=== PATIENT | female | born 1985 | race Caucasian/White ===

== ENCOUNTER → 2020-03-14 15:51 | Outpatient (CLI) | payer OTHER, SELFPAY ==
[2020-03-14 14:26] VITALS: BMI 17.4
[2020-03-14 16:47] LABS: Absolute Lymphocyte Count 2.01 X10^3/uL (0.83-4.51); Absolute Neutrophil Count 5.3 X10^3/uL (2.0-7.7); Basophil# 0.03 X10^3/uL; Basophil% 0.4 % (0-1); Eosinophil# 0.03 X10^3/uL; Eosinophils% 0.4 % (0-5); Hemoglobin 13.5 g/dL (12.0-15.0); Lymphocyte # 2.01 X10^3/ul (4.0); Lymphocyte % 25.3 % (19-41); Mean Corp Hgb Conc 32.1 g/dL (32-36); Mean Corpuscular Hgb 29.9 pg (27.0-32.0); Mean Corpuscular Volume 92.9 fL (81-99); Mean Platelet Vol. 9.8 fl (6.2-12.0); Monocyte# 0.54 X10^3/uL; Monocyte% 6.8 % (0-10); NRBC Flagged by Analyzer 0 % (0-5); Neutrophil # 5.32 X10^3/uL (2.7-7.7); Neutrophil % 66.8 % (47-70); Platelet Count 321 K/mm3 (150-450); RBC Distribution Width CV 12.4 % (11.6-14.6); RBC Distribution Width SD 42.7 fl (35.1-43.9); Red Blood Count 4.52 M/mm3 (4.2-5.4)
[2020-03-14 17:22] LABS: Anion Gap 3 (5-15); BUN 11 mg/dL (7-18); BUN/Creat Ratio 18.1 RATIO (10-20); Calcium,Total 9.7 mg/dL (8.5-10.1); Chloride 106 mmol/L (98-107); Creatinine, Serum 0.61 mg/dL (0.55-1.02); EST Glomerular Filtration Rate 121 mL/min (>60); Est Glom Filt Rate - Afr Amer 146 mL/min (>60); Glucose 96 mg/dL (74-106); Magnesium 2.2 mg/dL (1.6-2.6); Potassium 3.8 mmol/L (3.5-5.1); Sodium Level 138 mmol/L (136-145); T4 Total, Thyroxin 9.3 ug/dL (4.8-13.9)
== END ==
PROVIDERS: PCP Family Medicine; Visit Provider Internal Medicine Cardiovascular Disease
DX: R42 Dizziness and giddiness (principal); R00.2 Palpitations; I49.9 Cardiac arrhythmia, unspecified
CPT/HCPCS: 36415; 80048; 83735; 84436; 84443; 85025

== ENCOUNTER → 2020-04-04 09:41 | Outpatient (CLI) | payer OTHER, SELFPAY ==
[2020-03-14 14:26] VITALS: BMI 17.4
== END ==
PROVIDERS: PCP Family Medicine; Referring Provider Internal Medicine Cardiovascular Disease; Visit Provider Internal Medicine Cardiovascular Disease
DX: R42 Dizziness and giddiness (principal); R00.2 Palpitations; I49.9 Cardiac arrhythmia, unspecified
CPT/HCPCS: 93225; 93226

== ENCOUNTER → 2020-04-07 09:44 | Outpatient (CLI) | payer SELFPAY, OTHER ==
[2020-03-14 14:26] VITALS: BMI 17.4
--- NOTE | 2020-04-07 09:46 | ECHOD_ITS ---
Reason For Study: palpitations Procedure This was a 2D Doppler, Color Flow transthoracic echocardiogram. The exam was of adequate technical quality. Exam performed in department. Left Ventricle Normal LV size. Left ventricular systolic function is lower limits of normal. The estimated ejection fraction is 50 %. No evidence for diastolic dysfunction. Right Ventricle Normal RV size. Normal systolic function. Atria Normal left atrium. Normal right atrium. No doppler evidence for ASD. Mitral Valve There is no mitral annular calcification. Normal mitral valve. Trivial mitral valve insufficiency. Tricuspid Valve Normal tricuspid valve. Trivial tricuspid valve insufficiency. Right ventricular systolic pressure estimated to be 14 mmHg. Aortic Valve Trisinus/trileaflet aortic valve. Normal aortic valve. Trivial aortic valve insufficiency. Pulmonic Valve The pulmonic valve is not well visualized. Great Vessels Normal sized aortic root. Pericardium/Pleural No pericardial effusion. MMode/2D Measurements & Calculations LVIDd: 5.0 cm IVSd: 0.51 cm Ao root diam: 3.0 cm LVIDs: 3.8 cm LVPWd: 0.61 cm RVDd: 3.0 cm FS: 24.4 % LAV(MOD-bp): 29.8 ml LA A4 area: 13.4 cm2 LA dimension(2D): 2.2 cm LAV(MOD-bp) Indexed: 19.3 ml/m2 LAV(MOD-sp2): 20.7 ml LAV(MOD-sp4): 36.0 ml RA A4 area: 11.0 cm2 Doppler Measurements & Calculations MV E max boy: 55.4 cm/sec Lat Peak E' Boy: 16.3 cm/sec Med Peak E' Boy: 12.6 cm/sec MV A max boy: 46.0 cm/sec E/E' lat: 3.4 E/E' med: 4.4 MV E/A: 1.2 Ao V2 max: 99.8 cm/sec LV V1 max: 86.4 cm/sec PA V2 max: 69.5 cm/sec Ao max P.0 mmHg LV V1 max P.0 mmHg TR max boy: 164.4 cm/sec TR max P.8 mmHg Interpretation Summary Left ventricular systolic function is lower limits of normal. The estimated ejection fraction is 50 %. Trivial mitral valve insufficiency. Trivial tricuspid valve insufficiency. Trivial aortic valve insufficiency. Right ventricular systolic pressure estimated to be 14 mmHg. No evidence for diastolic dysfunction. Ordering Physician: Addison Virgen Referring Physician: Doroteo Rodriguez Performed By: Lay Kessler, RHODACS, RVT
== END ==
PROVIDERS: PCP Family Medicine; Referring Provider Internal Medicine Cardiovascular Disease; Visit Provider Internal Medicine Cardiovascular Disease
DX: R42 Dizziness and giddiness (principal); R00.2 Palpitations; I49.9 Cardiac arrhythmia, unspecified
CPT/HCPCS: 93306

== ENCOUNTER 2023-10-04 04:08 | Inpatient (IN) | payer OTHER, SELFPAY ==
[2023-10-04] VITALS (18 sets, daily range): BP systolic 99–123; BP diastolic 43–79; PULSE 74–97; RESP 14–18; TEMP 35.8–36.8; O2SAT 16–100; BMI 16.3
--- NOTE | 2023-10-04 04:19 | RAD_ITS ---
INDICATION: pain EXAMINATION/TECHNIQUE: X-RAY - XR Pelvis 1 or 2 Views COMPARISON: None. FINDINGS: Single frontal view the pelvis. Comminuted, mildly displaced, oblique intertrochanteric proximal femur fracture, only partially imaged. No other definite acute osseous abnormality. RAD/Pelvis 1 or 2 Views IMPRESSION: Left proximal femur fracture, only partially imaged. Electronically Signed: Hoang Bradshaw MD at 5:56 EDT ,
--- NOTE | 2023-10-04 04:19 | RAD_ITS ---
INDICATION: pain EXAMINATION/TECHNIQUE: X-RAY - LEFT XR Femur Min 2 Views COMPARISON: None. FINDINGS: 4 views of the left femur. Comminuted, mildly displaced, oblique intertrochanteric proximal femur fracture. No other definite acute osseous abnormality. RAD/Femur Min 2 Views IMPRESSION: Left proximal femur fracture. Electronically Signed: Hoang Bradshaw MD at 5:55 EDT ,
--- NOTE | 2023-10-04 04:20 | ED.VIS.LOWEX ---
HPI History of Present Illness Chief Complaint: Trauma Narrative Narrative: 37-year-old female presenting with left hip and femur pain. She states that 3 days ago she was in [place]. The patient was with her . Apparently she was washing close by the water and on the amount. There was a person living out there by the [place] who had a dog on a long leash and left out of the yard. Apparently the patient came to close and the dog ran at her. The patient states he is a big dog but does not know what kind it was. It jumped on her and bit her abdomen and posterior down on the left side. Patient was unable to ambulate after this. She and her decided not to seek care anywhere along the route home from [place] and she has been traveling for the last few days. She is not able to ambulate. [facility] Medical History (Updated 10/04/23 @ 06:[address] Suellen Moran MD) Palpitations Medical History no medical history Home Medications ?Medication ?Instructions ?Recorded ?Last Taken ?Type NK 10/04/23 Unknown History Allergy/AdvReac Type Severity Reaction Status Date / Time No Known Allergies Allergy Verified 10/04/23 04:13 Family History Other Heart disease Social History Smoking Status: Never smoker alcohol intake: never substance use type: does not use caffeine: Yes Type: carbonated beverages and coffee Number of servings: 1 ROS ROS ED Constitutional Constitutional ED: Denies chills, fever(s) or sweats Eyes Eyes: Denies blurry vision or change in vision ENT ENT ED: Denies ear pain or sore throat Cardiovascular Cardiovascular: Denies chest pain, palpitations or racing heartbeat Respiratory/Chest Respiratory/Chest: Denies cough, dyspnea or sputum Gastrointestinal Gastrointestinal: Denies abdominal pain, constipation, diarrhea, nausea or vomiting Genitourinary Genitourinary ED: Denies dysuria, hematuria or urinary frequency Musculoskeletal Musculoskeletal: Reports other Details: Left hip and femur pain ; Denies arthralgias, myalgias or neck pain Integumentary Denies abscess, Abrasions or rash Neurologic Neurologic: Denies headache(s), paresthesias or weakness Psychiatric Psychiatric: Denies anxiety, depression, suicidal ideation or suicidal thoughts Endocrine Endocrinology: Denies polydipsia or polyuria EXAM Physical Exam Const Vital Signs: 10/04/23 04:09 10/04/23 04:37 Temperature 96.5 F L Temperature Source Temporal Pulse Rate 87 Respiratory Rate 18 Respiratory Effort Normal Non-Labored Respiratory Depth Normal Respiratory Pattern Normal Blood Pressure 114/43 L Blood Pressure Mean 66 Pulse Ox 98 Oxygen Delivery Method Room Air Positive well nourished General Appearance ED: NAD HEENT Reports moist mucous membranes normocephalic and atraumatic Chest Wall inspection of chest normal Resp normal respiratory effort and no retractions Cardio regular rate and regular rhythm GI GI Narrative: There is a large bite wound on the abdomen with minimal penetration. There is erythema mild erythema. Extremity Extremity Narrative: Tenderness to palpation over the left greater trochanter and more distally into the femur region. There is no obvious deformity. There is no bruising. Neuro oriented x3 and CN's II-XII intact bilaterally Sensorium / Orientation: alert Motor Exam: strength 5/5 throughout Psych mental status grossly normal MDM MDM MDM Narrative Medical decision making narrative: Patient presenting with dog bite and left-sided leg pain. Differential includes hip contusion, hip fracture, femur fracture, acetabular fracture. IV line was established. Patient given morphine and Zofran. Will obtain images of the left hip and left femur. Patient's tells me that the fall internship of the dog had all to mutations up-to-date. CBC will be obtained to assess white blood cell count, hemoglobin and platelets. BMP to assess renal function, electrolytes, glucose. CBC shows normal and within 6.9. Hemoglobin 11.9. Platelets are normal. Renal function and electrolytes within normal limits. X-rays of the left hip and femur interpreted by myself show a oblique intertrochanteric femur fracture with mild displacement. Discussed the case with Dr. Lei who is on-call for orthopedics and will keep the patient and take him to the OR. Patient has remained NPO since 9 PM last night. I did obtain a chest x-ray 1 view on my interpretation shows no acute cardiopulmonary process. Radiologist interprets this and agrees. I gave the patient a dose of Zosyn to keep her n.p.o. to cover for her dog bite. Impression: 1. Dog bite 2. Left femur fracture Lab Data Attestation: I reviewed the patient's lab results. Labs: Laboratory Results - last 24 hr 10/04/23 04:35 WBC 6.9 RBC 3.99 L Hgb 11.9 L Hct 37.1 MCV 93.0 MCH 29.8 MCHC 32.1 RDW Std Deviation 43.9 RDW Coeff of Madonna 12.9 Plt Count 227 MPV 9.7 Immature Gran % (Auto) 0.300 Neut % (Auto) 63.5 Lymph % (Auto) 26.7 [place] % (Auto) 8.4 Eos % (Auto) 0.7 Baso % (Auto) 0.4 Absolute Neuts (auto) 4.4 Absolute Lymphs (auto) 1.84 Nucleated RBC % 0 Sodium 140 Potassium 3.5 Chloride 106 Carbon Dioxide 28.0 Anion Gap 6 BUN 10 Creatinine 0.78 Estim Creat Clear Calc 100.92 Est GFR (MDRD) Af Amer 108 Est GFR (MDRD) Non-Af 89 BUN/Creatinine Ratio 12.9 Glucose 116 H Calcium 9.1 Radiography Diagnostic Testing: Clinical Impression(s) from Imaging Studies Femur X-Ray 10/04/23 04:19 IMPRESSION: Left proximal femur fracture. Electronically Signed: Hoang Bradshaw MD at 5:55 EDT , Pelvis X-Ray 10/04/23 04:19 IMPRESSION: Left proximal femur fracture, only partially imaged. Electronically Signed: Hoang Bradshaw MD at 5:56 EDT , Chest X-Ray 10/04/23 05:00 IMPRESSION: Chest with no acute disease. Electronically Signed: Hoang Bradshaw MD at 5:52 EDT , Discharge Plan Triage Chief Complaint: Trauma Other Complaint: Fall ED Provider: Tico Hutton Dx/Rx/DC Orders Primary Care Provider: Doroteo Rodriguez
[2023-10-04 04:40] LABS: Absolute Lymphocyte Count 1.84 X10^3/uL (0.83-4.51); Absolute Neutrophil Count 4.4 X10^3/uL (2.0-7.7); Basophil# 0.03 X10^3/uL; Basophil% 0.4 % (0-1); Eosinophil# 0.05 X10^3/uL; Eosinophils% 0.7 % (0-5); Hematocrit 37.1 % (37-47); Hemoglobin 11.9 g/dL (12.0-15.0); Lymphocyte # 1.84 X10^3/ul (0.83-4.51); Lymphocyte % 26.7 % (19-41); Mean Corp Hgb Conc 32.1 g/dL (32-36); Mean Corpuscular Hgb 29.8 pg (27.0-32.0); Mean Platelet Vol. 9.7 fl (6.2-12.0); Monocyte# 0.58 X10^3/uL; Monocyte% 8.4 % (0-10); NRBC Flagged by Analyzer 0 % (0-5); Neutrophil # 4.37 X10^3/uL (2.7-7.7); Neutrophil % 63.5 % (47-70); Platelet Count 227 K/mm3 (150-450); RBC Distribution Width CV 12.9 % (11.6-14.6); RBC Distribution Width SD 43.9 fl (35.1-43.9); Red Blood Count 3.99 M/mm3 (4.2-5.4); White Blood Count 6.9 K/mm3 (4.4-11.0)
[2023-10-04] MEDS: Ondansetron 4 MG/2 ML Vial IV (04:43)
[2023-10-04] MEDS: Morphine 4 MG/ML Syringe IV ×3 (04:44→10:44)
[2023-10-04] MEDS: Diphth,Pertuss(Acell),Tet Vac 0.5 ML Vial IM (04:46)
[2023-10-04 04:54] LABS: Anion Gap 6 (5-15); BUN 10 mg/dL (7-18); BUN/Creat Ratio 12.9 RATIO (10-20); Calcium,Total 9.1 mg/dL (8.5-10.1); Chloride 106 mmol/L (98-107); Creatinine, Serum 0.78 mg/dL (0.55-1.02); EST Glomerular Filtration Rate 89 mL/min (>60); Est Glom Filt Rate - Afr Amer 108 mL/min (>60); Estimated Creatinine Clearance 100.92 ml/min; Glucose 116 mg/dL (74-106); Potassium 3.5 mmol/L (3.5-5.1); Sodium Level 140 mmol/L (136-145)
--- NOTE | 2023-10-04 05:00 | RAD_ITS ---
INDICATION: medical clearance EXAMINATION/TECHNIQUE: X-RAY - XR Chest 1 View COMPARISON: None. Findings: Single frontal view of the chest. LUNG PARENCHYMA: No acute focal airspace disease or mass lesion. PLEURA: No pleural effusion. No pneumothorax. HEART/GREAT VESSELS: Cardiomediastinal silhouette is unremarkable. BONES: Osseous structures are unremarkable for age. RAD/Chest 1 View (Portable) IMPRESSION: Chest with no acute disease. Electronically Signed: Hoang Bradshaw MD at 5:52 EDT ,
[2023-10-04] MEDS: 0.9% Normal Saline (1000mL) 1,000 ML 100 ML IV ×2 (07:33→17:56)
--- NOTE | 2023-10-04 08:48 | CON.PCM.OR_ITS ---
HPI Consult Data Date of Consult: 10/04/23 HPI Narrative HPI Narrative: JARETT ALVARADO, is a 37 F who presents with a left hip fracture intertrochanteric. The patient was pushed over by dog 2 days ago fell over was unable to weight- bear. Brought here by her Josafat this morning at about 3 AM. No prior hip pain or problems no head injury or loss of consciousness. [facility] Medical History (Updated 10/04/23 @ 08:50 by Michael Lei MD) Closed left hip fracture Palpitations Medical History no medical history Home Medications ?Medication ?Instructions ?Recorded ?Last Taken ?Type NK 10/04/23 Unknown History Allergy/AdvReac Type Severity Reaction Status Date / Time No Known Allergies Allergy Verified 10/04/23 04:13 Family History Other Heart disease Social History Smoking Status: Never smoker alcohol intake: never substance use type: does not use caffeine: Yes Type: carbonated beverages and coffee Number of servings: 1 Vital Signs Vital Signs Vital Signs: 10/04/23 04:09 10/04/23 04:37 10/04/23 06:09 Temperature 96.5 F L Temperature Source Temporal Pulse Rate 87 92 Respiratory Rate 18 14 Respiratory Effort Normal Non-Labored Respiratory Depth Normal Respiratory Pattern Normal Blood Pressure 114/43 L 123/74 H Blood Pressure Mean 66 90 Blood Pressure Source Blood Pressure Position Blood Pressure Location Pulse Ox 98 100 Oxygen Delivery Method Room Air Room Air 10/04/23 06:09 10/04/23 07:21 Temperature 97.1 F L 98.3 F Temperature Source Oral Pulse Rate 92 79 Respiratory Rate 16 16 Respiratory Effort Respiratory Depth Respiratory Pattern Blood Pressure 123/74 H 114/68 Blood Pressure Mean 90 83 Blood Pressure Source Monitor Blood Pressure Position Semi-Fowlers Blood Pressure Location Right Arm Pulse Ox 100 100 Oxygen Delivery Method Room Air Weight Weight: 113 lb 12.136 oz Body Mass Index (BMI) 16.3 Physical Exam Const alert, oriented x3, no apparent distress and well nourished General Appearance: cooperative and well developed Extremity normal capillary refill, no calf tenderness and no pedal edema Extremity Narrative: Closed injury to the left hip pain to the left hip no pain at the knee or lower than this. Normal sensation motor function to the foot including the superficial and deep peroneal nerves as well as saphenous sural and tibial. The patient is able to wiggle the toes dorsiflex and plantarflex the foot foot is warm and well-perfused with good pulses. Lab / Micro Data 10/04/23 04:35 10/04/23 04:35 Labs: Laboratory Results - last 24 hr 10/04/23 04:35: WBC 6.9, RBC 3.99 L, Hgb 11.9 L, Hct 37.1, MCV 93.0, MCH 29.8, MCHC 32.1, RDW Std Deviation 43.9, RDW Coeff of Madonna 12.9, Plt Count 227, MPV 9.7, Immature Gran % (Auto) 0.300, Neut % (Auto) 63.5, Lymph % (Auto) 26.7, [place] % (Auto) 8.4, Eos % (Auto) 0.7, Baso % (Auto) 0.4, Absolute Neuts (auto) 4.4, Absolute Lymphs (auto) 1.84, Nucleated RBC % 0, Sodium 140, Potassium 3.5, Chloride 106, Carbon Dioxide 28.0, Anion Gap 6, BUN 10, Creatinine 0.78, Estim Creat Clear Calc 100.92, Est GFR (MDRD) Af Amer 108, Est GFR (MDRD) Non-Af 89, BUN/Creatinine Ratio 12.9, Glucose 116 H, Calcium 9.1 Imaging Radiology Impression Femur X-Ray 10/04/23 04:19 IMPRESSION: Left proximal femur fracture. Electronically Signed: Hoang Bradshaw MD at 5:55 EDT , Pelvis X-Ray 10/04/23 04:19 IMPRESSION: Left proximal femur fracture, only partially imaged. Electronically Signed: Hoang Bradshaw MD at 5:56 EDT , Chest X-Ray 10/04/23 05:00 IMPRESSION: Chest with no acute disease. Electronically Signed: Hoang Bradshaw MD at 5:52 EDT , I independently reviewed the imaging. Concur with radiologist report. 2 part intertrochanteric proximal femur fracture with slight subtrochanteric extension Assessment & Plan Assessment/Plan (1) Closed left hip fracture: PLAN: 37-year-old female with a left hip intertrochanteric hip fracture with slight subtrochanteric extension. I explained to the patient and her the diagnosis prognosis different treatment options including doing nothing bedrest palliative care versus open reduction internal fixation typically with a cephalomedullary nail. Risks of not surgery versus surgery were discussed typically surgery is indicated in most hip fractures as this avoids the risks of prolonged bedrest like VTE pneumonia and other complications. That being said surgery has risks as well which I discussed with the patient. High healing rate for IT hip fracture, but hip fracture in young patient does have risks of pain stiffness limp malrotation and others. The patient will be n.p.o. in preparation for surgery MRI of the left hip discussed the case with anesthesia hopefully to be added on this afternoon. For now I bedrest and holding any anticoagulation. The patient and understood and signed the consent form for surgery left hip open reduction internal fixation as well as possible need for blood products. They understood no further questions or concerns. Pros and cons risks and benefits were discussed with the patient including but not limited to infection, pain, stiffness, bleeding, damage to surrounding structures, neurovascular injury, recurrence or retear, failure or wear of hardware or fixation, instability, fracture, deep vein thrombosis and pulmonary embolism, anesthetic risks, , patient dissatisfaction, need for further surgery and other risks. Patient understood and wished to proceed with surgery, and signed the informed consent documentation.
--- NOTE | 2023-10-04 08:48 | WOUNDNOTE ---
Was asked to see patient for canine bites. patient was fishing in [place] with her and children and was attacked by a dog from the area. patient was admitted for a left hip fracture. there are some scratch gonzalez to the left lower abdomen and one small puncture. no drainage noted. no surrounding erythema noted. will plan to leave open to air. can cover with a dry dressing prn drainage. will monitor. pt is scheduled for surgery later today for left hip repair. at bedside.
[2023-10-04] MEDS: Piperacil/Tazobactam 3.375 GM in 0.9% Normal Saline (50mL MB+) 50 ML IV (09:54)
--- NOTE | 2023-10-04 10:27 | CASEMGMT ---
SELVIN JONES Assessment Face to Face with patient for initial transition planning/care coordination assessment. SELVIN JONES introduced self and role at [facility], pt voices understanding. Pt is A&Ox4 and is resting comfortably in bed and is calm. Pt at bedside. Care providers, pharmacy, and demographics verified. Admitting dx: Lt Hip Fx LACE Strata: 1 PCP: Doroteo Rodriguez Specialists: Denies Preferred Pharmacy: [facility] During this stay Insurance: [employer] Prescription Benefit: Yes LNOK: oJsafat Puente (H) Living Arrangements: Pt lives at home with her and 6 children in a two story home with two steps to enter ADLs/IADLs: Ind at baseline Transportation: Pt states that they hire drivers. Pt states that they might hire a explosives truck driver to help transport the pt home. [facility] Staff to follow needs. DME: [facility] at home. Denies further DME uses at this time. HHC/SNF: Denies history or needs Pt?s goal: Home Plan: TBD. Pt is scheduled for surgery today. PT to evaluate subsequently. Pt and pt state that it is too early to tell what the pt will best qualify for moving forward. CM to follow. Nidia Grant RN, CM
[2023-10-04 10:49] LABS: Internal QC Validated? YES +Cl - CLEAR BKGD; Pregnancy, Urine Negative Negative
--- NOTE | 2023-10-04 12:47 | PCM.PRE.AN2 ---
ASA Classification* ASA Classification ASA Classification: 2 and E Assessment & Plan Anesthesia* Anesthesia Assessment Anesthesia Assessment: Discussed sedation and/or anesthesia options, risks, benefits, and alternatives with patient/parents/legal guardian/POA. Questions invited. The patient/parents/legal guardian/POA seems to understand and agrees to proceed with anesthesia plan. Reviewed the physical assessment, medical history, allergy history and patient home medications list prior to surgery/procedure/anesthetic and documented any changes. Performed airway and anesthesia risk assessments. Anesthesia Type Anesthesia Type: General Anesthesia Focused Assessment* Temperature: 98.3 F Pulse Rate: 79 Blood Pressure: 114/68 Respiratory Rate: 16 Pulse Ox: 100 Airway Assessment Mouth opens: >3 cm Mallampati Score: II Focused Labs Anesthesia Preop lab: CBC WBC 6.9 K/mm3 (4.4-11.0) 10/04/23 04:35 RBC 3.99 M/mm3 (4.2-5.4) L 10/04/23 04:35 Hgb 11.9 g/dL (12.0-15.0) L 10/04/23 04:35 Hct 37.1 % (37-47) 10/04/23 04:35 Plt Count 227 K/mm3 (150-450) 10/04/23 04:35 CHEMISTRY Potassium 3.5 mmol/L (3.5-5.1) 10/04/23 04:35 Sodium 140 mmol/L (136-145) 10/04/23 04:35 Magnesium 2.2 mg/dL (1.6-2.6) 03/14/20 15:55 BUN 10 mg/dL (7-18) 10/04/23 04:35 Creatinine 0.78 mg/dL (0.55-1.02) 10/04/23 04:35 Glucose 116 mg/dL (74-106) H 10/04/23 04:35 TSH 1.10 uIU/mL (0.358-3.74) 03/14/20 15:55 COAG Urine Test Negative Negative 10/04/23 10:00 Pre-Assessment Diagnosis/Proposed Procedure Planned Operative Procedure(s): hip orif Anesthesia History Anesthesia History - front end java developer: Anesthesia History - front end java developer Hx Hospitalization Any Problems With Anesthesia Cholinesterase deficiency You/Your Family Experience fever (hyperthermia) with Relationship Recent Exposure to Contagious Disease Does patient have nerve stimulator Patient instructed to have device shut off --Does patient have Pacemaker or ICD? When Was Last Pacemaker Check QUESTION #4 FULL TEXT: You/Your Family Experience fever (hyperthermia) with Anesthesia Last Oral Intake Last Oral intake: Last Oral Intake NPO since Meds taken in AM with sips of water? Meds patient instructed to take am of surgery PONV PONV - front end java developer: PONV - front end java developer Female HX of Motion Sickness HX of N/V After Surgery Non-Smoker Duration of Surgery greater than 60 minutes Number of Risk Factors PONV Score Height & Weight Height & Weight: Anesthesia: Height & Weight Height 5 ft 10 in 10/04/23 07:19 Weight: 51.6 kg 10/04/23 07:19 Body Mass Index (BMI) 16.3 10/04/23 07:19 Respiratory Assessment Respiratory Assessment - front end java developer: Respiratory Tract Infection Hx - front end java developer Hx Respiratory Tract Infection STOP Sleep Apnea STOP Sleep Apnea - front end java developer: STOP Sleep Apnea - front end java developer Hx Hypertension No 10/04/23 07:25 Hx Sleep Apnea No 10/04/23 07:25 CPAP BIPAP Do you snore loudly (louder No 10/04/23 07:25 than talking or can be heard Do you often feel tired/ No 10/04/23 07:25 fatigued/ sleepy during daytime? Has anyone observed you stop No 10/04/23 07:25 breathing during sleep? STOP Results Negative 10/04/23 07:25 QUESTION #5 FULL TEXT : Do you snore loudly (louder than talking or can be heard through closed doors)? Tobacco Use History Tobacco Use History - front end java developer: Tobacco Use History - front end java developer Tobacco Use Smoking Status Never smoker 10/04/23 07:25 Hx Tobacco Use No 10/04/23 07:25 Years Smoking Packs Smoked per Day Smoking Cessation Date was within the last 15 years Hx Smoking Cessation Date Hx Smoking Cessation Counseling Hematologic Medial History Hematologic Hx - front end java developer: Hematologic Medical Hx - senior payroll administrator Hx of Blood Transfusion No 10/04/23 07:25 Hx of Transfusion in last 3 No 10/04/23 07:25 Months Date of Last Transfusion (if within last 3 months) Ever experience any problems No 10/04/23 07:25 with transfusion(s)? Specify any problems Hx of Preganancy in last 3 No 10/04/23 07:25 Months Nurse Filling Out Transfusion AHINES 10/04/23 07:25 & Questions: Date: 10/04/23 10/04/23 07:25 Time: 07:27 10/04/23 07:25 Patient unable to answer at this time (ie. confused, unrespo /Reproduction History /Reproductive History - front end java developer: /Reproductive Hx- front end java developer Hx Now No 10/04/23 07:25 Gestational Age (in weeks): EDC: Hx Hx Para Hx Section SAB No 10/04/23 04:09 Active Medications Active Medications: Current Medications Generic Name Dose Route Start Last Admin Trade Name Freq PRN Reason Stop Dose Admin Acetaminophen 650 mg 10/04/23 07:13 Acetaminophen 325 Mg Tablet PO Q4H PRN PRN Fever, pain 1-01/01 Al Hydroxide/Mg Hydroxide 30 ml 10/04/23 07:13 Mag Hydrox/Al Hydrox/Simeth 30 Ml Udc PO Q6H PRN PRN Gastric Burning Albuterol Sulfate 2.5 mg 10/04/23 07:13 Albuterol 2.5 Mg/3 Ml Vial.Neb. INHALATION Q2H PRN PRN Dyspnea, wheezing Famotidine 20 mg 10/04/23 10:00 10/04/23 09:55 Famotidine 20 Mg Tablet PO Not Given BID HENRI Guaifenesin 20 ml 10/04/23 07:13 Guaifenesin 10 Ml Udc (200mg/10ml) PO Q4H PRN PRN COUGH Hydralazine HCl 10 mg 10/04/23 07:13 Hydralazine 20 Mg/Ml Vial IV Q4H PRN PRN SBP > 160 Protocol Sodium Chloride 1,000 mls @ 100 mls/hr 10/04/23 07:13 10/04/23 10:25 IV 10/04/23 22:12 100 mls/hr .Q10H HENRI Infusion Ampicillin Sodium/Sulbactam 112 mls @ 150 mls/hr 10/04/23 12:00 Sodium 3 gm/ Sodium Chloride IV Q6 HENRI Melatonin 3 mg 10/04/23 07:13 Melatonin 3 Mg Tablet PO QHS PRN PRN INSOMNIA Morphine Sulfate 2 - 4 mg 10/04/23 07:13 10/04/23 10:44 Morphine 4 Mg/Ml Syringe IV 4 mg Q2H PRN PRN Administration Pain Score 4-10 Ondansetron HCl 4 mg 10/04/23 07:13 Ondansetron 4 Mg/2 Ml Vial IV Q8H PRN PRN NAUSEA/VOMITING Oxycodone HCl 5 - 10 mg 10/04/23 07:13 Oxycodone 5 Mg Tablet PO Q4H PRN PRN Pain Score 4-10 Prochlorperazine Edisylate 5 mg 10/04/23 07:13 Prochlorperazine 10 Mg/2 Ml Vial IV Q4H PRN PRN Breakthrough nausea/vomiting Senna/Docusate Sodium 2 tablet 10/04/23 10:00 10/04/23 09:56 Senna/Docusate Sodium 1 Tablet PO Not Given BID HENRI Sodium Chloride 10 - 40 ml 10/04/23 07:23 0.9% Saline Lock 10 Ml Syringe IV UD PRN SALINE FLUSH PFSH Medical History Closed left hip fracture Palpitations Medical History no medical history Home Medications ?Medication ?Instructions ?Recorded ?Last Taken ?Type NK 10/04/23 Unknown History Allergy/AdvReac Type Severity Reaction Status Date / Time No Known Allergies Allergy Verified 10/04/23 04:13 Family History Other Heart disease Social History Smoking Status: Never smoker alcohol intake: never substance use type: does not use caffeine: Yes Type: carbonated beverages and coffee Number of servings: 1 Review of Systems (Anesthesia) ROS Narrative System reviewed and no additional complaints, except as documented.
--- NOTE | 2023-10-04 13:25 | RAD_ITS ---
STUDY: X-RAY - PELVIS AND LEFT HIP REASON FOR EXAM: Female, 37 years old. FX TECHNIQUE: 2 views of the pelvis and hip. COMPARISON: Earlier today FINDINGS: 64 seconds of fluoroscopy of the left hip was utilized for upper arm during open reduction internal fixation of fracture of the intratrochanteric femur the femoral neck compression screw and long intramedullary miki and 5 images are significant for interpretation. . RAD/Hip Min 2 Views (Portable) IMPRESSION: Fluoroscopy during open reduction internal fixation of fracture of the intertrochanteric femur. Electronically Signed: Chava Cooper MD at 16:57 EDT ,
[2023-10-04] MEDS: Cefazolin 2 GM in 0.9% Normal Saline (100mL Bag) 100 ML IV (13:53)
--- NOTE | 2023-10-04 13:57 | PN.ORTHO_ITS ---
Subjective Subjective no changes, pending L hip ORIF Objective Data Objective Data Vital Signs: Vital Signs Temp Pulse Resp BP Pulse Ox O2 Del Method 98.3 F 79 16 114/68 100 Room Air 10/04/23 12:47 10/04/23 12:47 10/04/23 12:47 10/04/23 12:47 10/04/23 12:47 10/04/23 10:19 Oxygen Delivery Method Room Air Weight: 113 lb 12.136 oz Body Mass Index (BMI) 16.3 Intake & Output: Intake and Output for Last 24 Hours 10/02/23 10/03/23 10/04/23 23:59 23:59 23:59 Intake Total 298.33 / 298.33 Output Total 450 / 450 Balance -151.67 / -151.67 Lab / Micro Data 10/04/23 04:35 10/04/23 04:35 Labs: Laboratory Results - last 24 hr 10/04/23 04:35: WBC 6.9, RBC 3.99 L, Hgb 11.9 L, Hct 37.1, MCV 93.0, MCH 29.8, MCHC 32.1, RDW Std Deviation 43.9, RDW Coeff of Madonna 12.9, Plt Count 227, MPV 9.7, Immature Gran % (Auto) 0.300, Neut % (Auto) 63.5, Lymph % (Auto) 26.7, [place] % (Auto) 8.4, Eos % (Auto) 0.7, Baso % (Auto) 0.4, Absolute Neuts (auto) 4.4, Absolute Lymphs (auto) 1.84, Nucleated RBC % 0, Sodium 140, Potassium 3.5, Chloride 106, Carbon Dioxide 28.0, Anion Gap 6, BUN 10, Creatinine 0.78, Estim Creat Clear Calc 100.92, Est GFR (MDRD) Af Amer 108, Est GFR (MDRD) Non-Af 89, BUN/Creatinine Ratio 12.9, Glucose 116 H, Calcium 9.1 10/04/23 10:00: Urine Test Negative 10/04/23 11:23: Blood Type A POSITIVE, Antibody Screen NEGATIVE Radiography Diagnostic Testing: Radiology Impression Femur X-Ray 10/04/23 04:19 IMPRESSION: Left proximal femur fracture. Electronically Signed: Hoang Bradshaw MD at 5:55 EDT , Pelvis X-Ray 10/04/23 04:19 IMPRESSION: Left proximal femur fracture, only partially imaged. Electronically Signed: Hoang Bradshaw MD at 5:56 EDT , Chest X-Ray 10/04/23 05:00 IMPRESSION: Chest with no acute disease. Electronically Signed: Hoang Bradshaw MD at 5:52 EDT , Assessment & Plan Assessment/Plan (1) Closed left hip fracture: PLAN: 37 yr F with L hip IT fracture. Plan to proceed w CM nail. No further concerns.
[2023-10-04] MEDS: TRANEXAMIC ACID 1,000 MG in 0.9% Normal Saline (100mL Bag) 100 ML 440 MG IV (14:34)
[2023-10-04] MEDS: Bupivacaine 0.25% 30 ML Vial (15:01)
--- NOTE | 2023-10-04 15:09 | OP.PCM_ITS ---
Problems Associated Problem List Diagnoses (1) Closed left hip fracture: Report of Operation Date of Procedure: 10/04/23 Pre-Operative Diagnosis: L hip IT fracture Post-Operative Diagnosis: same Surgery/Procedure Performed:: L hip open reduction internal fixation Surgeon: Michael Lei Type of Anesthesia: General and Local Anesthesiologist: Fermin Mai Estimated Blood Loss (mL): 100 Description of Procedure: Patient brought the operating room theater. Placed supine on the fracture tab le. General anesthesia induced. 2 g IV Ancef given prior to the procedure as well as 1 g IV tranexamic acid. All bony prominences padded. SCD on the nonoperative leg. Perineal post appropriately padded. Left lower extremity in traction and then internal rotation. Foot padded. Contralateral leg attached the middle post of the bed properly padded at the peroneal nerve in scissoring position. Left lower extremity prepped and draped in the usual sterile fashion with chlorhexidine-based prep solution allowing over 3 minutes drying time prior to draping with a shower curtain style drape. Preoperative timeout performed to confirm the site patient the surgery. Began by taking xrays to confirm good reduction of the fracture, then inserting the 3.2 mm partially-threaded guidewire at the tip of the trochanter down the center of the femur on the lateral radiograph and towards the lesser trochanter on the AP radiograph. Incised over this longitudinally about a 1.5 inch incision. Used a soft tissue protector. Then used the entry reamer over the guidewire. I removed this then passed the ball-tipped guidewire with a partial bend of the tip down to the center of the femur just at the superior aspect the patella. I then reamed up to a size 11.5 mm reamer with good chatter at the diaphysis. This measured 390 mm so I selected a 380 mm long nail with 130 degree neck shaft angle Synthes TFN?A, 10mm diameter. I attached this to the insertion guide inserted to appropriate depth. I used then used the drop-down guide. I removed the ball-tipped guidewire. I then passed threaded guidewire to the center of the femoral head into the subchondral bone of the femoral head. I ensured that this was slightly inferior and posterior in the neck. This measured 106 mm therefore I selected to ream 200 mm. I reamed up to 100 mm over the guidewire then used the tap for hard bone and knee on patient. I then inserted 100 mm partially-threaded screw. I locked this proximally. The drop- down guide was then removed. Reduction was maintained. I took AP lateral radiographs of the femur near far technique to ensure that there is no screw penetration. This is a short of subchondral bone with a normal tip to apex distance. I then turned my attention distally. Using perfect [place] technique and lateral radiographs I inserted 2 5.0 mm fully threaded cortical locking screws at the oblong hole and the hole just proximal to this. I fully seated these these achieved good purchase and rotational stability of the fracture. Final radiographs were taken AP lateral at both the distal and proximal ends of the femur. Good length rotation alignment of the fracture good alignment of the medial calcar. All guides were removed final radiographs taken wound thoroughly irrigated. Subcutaneous tissue closed with 2-0 Vicryl sutures and skin with latoya. 10 cc of quarter percent bupivicaine instilled in and around the soft tissues. Skin cleaned with wet dry dressing followed application of the clear plastic border dressings and silver Mepilex dressings proxomally. Patient taken out of the traction set up woken up from a general anesthetic transferred off the operating table and taken to postanesthetic care unit in stable condition. All sponge needle instrument counts were correct no complications plan for the patient weightbearing as tolerated postoperative VTE prophylaxis with Xarelto 10mg / day x 30 days. discharge home when cleared by PT OT and social work follow-up in the office in 2 weeks time to check the wound discontinue the latoya patient may shower over top of the site dressings but recommend to change dressings every 2 to 3 [address] 10023 Grafts/Implants Used: synthes tfn-a 380mm, 10mm diameter, 130 neck shaft Complications none Admit VTE Documentation VTE Present on Admission: No VTE Mechan Device Prophylaxis: SCD's VTE Pharm Prophylaxis ordered?: Yes Procedures Musculoskeletal [id number]: Other Procedure See Report
--- NOTE | 2023-10-04 15:12 | PCM.POST.ANE ---
Anesthesia: Postop Eval I Current Vital Signs Temperature: 98.2 F Pulse Rate: 82 Blood Pressure: 102/77 Respiratory Rate: 16 Pulse Ox: 97 Assessment Airway patent: Yes Spontaneous unlabored respirations: Yes Mental status: Awake and Calm nausea: No Vomiting: No Anesthesia Complication: No Fluid Hydration Crystalloid volume administer (ml): 800 Total IV fluid infused: 800 Progress Note Anesthesia document: Postop Eval 1 completed: Yes
--- NOTE | 2023-10-04 15:37 | POSTOPAN2_ITS ---
Anesthesia Postop Eval I Sum Postop Eval Completion status Anesthesia document: Postop Eval 1 completed: Yes Anesthesia Postop Eval I Summary Anesthesia Postop Eval I Summary: Anesthesia Postop Eval I: Assessment Summary Airway patent Yes 10/04/23 15:12 LEGAL SERVICE [email or web address].[email or web address] Spontaneous unlabored Yes 10/04/23 15:12 LEGAL SERVICE SPECIALIST.MDOT respirations Mental status Awake,Calm 10/04/23 15:12 LEGAL SERVICE SPECIALIST.MDOT nausea No 10/04/23 15:12 LEGAL SERVICE SPECIALIST.MDOT Vomiting No 10/04/23 15:12 LEGAL SERVICE SPECIALIST.MDOT Anesthesia Postop Eval I: Fluid Summary Crystalloid volume administer 800 10/04/23 15:12 LEGAL SERVICE SPECIALIST.MDOT (ml) Colloids volume administered ( ml) Blood Product volume administered (ml) Total IV fluid infused 800 10/04/23 15:12 LEGAL SERVICE SPECIALIST.MDOT Anesthesia Postop Eval I: Summary Notes Anesthesia Complication No 10/04/23 15:12 LEGAL SERVICE SPECIALIST.MDOT Anesthesia Complication Comment: Post-operative progress note Anesthesia: Postop Eval II Evaluation Mental status: Asleep (Arousable.) Pain Level: 4 nausea: No Vomiting: No Complications Anesthesia Complication: No
--- NOTE | 2023-10-04 15:37 | PCM.POSTANE2 ---
Anesthesia Postop Eval I Sum Postop Eval Completion status Anesthesia document: Postop Eval 1 completed: Yes Anesthesia Postop Eval I Summary Anesthesia Postop Eval I Summary: Anesthesia Postop Eval I: Assessment Summary Airway patent Yes 10/04/23 15:12 STEAM BOX [email or web address] Spontaneous unlabored Yes 10/04/23 15:12 STEAM BOX [email or web address].MDOT respirations Mental status Awake,Calm 10/04/23 15:12 STEAM BOX [email or web address] nausea No 10/04/23 15:12 STEAM BOX [email or web address].MDOT Vomiting No 10/04/23 15:12 STEAM BOX [email or web address].MDOT Anesthesia Postop Eval I: Fluid Summary Crystalloid volume administer 800 10/04/23 15:12 STEAM BOX TENDER.MDOT (ml) Colloids volume administered ( ml) Blood Product volume administered (ml) Total IV fluid infused 800 10/04/23 15:12 STEAM BOX [email or web address].MDOT Anesthesia Postop Eval I: Summary Notes Anesthesia Complication No 10/04/23 15:12 STEAM BOX [email or web address].MDOT Anesthesia Complication Comment: Post-operative progress note Anesthesia: Postop Eval II Evaluation Mental status: Asleep (Arousable.) Pain Level: 4 nausea: No Vomiting: No Complications Anesthesia Complication: No
[2023-10-04] MEDS: Lactated Ringers 1,000 ML 15 ML IV (17:43)
[2023-10-04] MEDS: oxyCODONE 5 MG Tablet PO (17:44)
[2023-10-04] MEDS: Ampicillin/Sulbactam 3 GM in 0.9% Normal Saline (100mL MB+) 100 ML IV (18:14)
[2023-10-04] MEDS: Acetaminophen 325 MG Tablet 650 MG PO (19:59)
[2023-10-04] MEDS: Senna/Docusate Sodium 1 Tablet 2 TABLET PO (21:37)
[2023-10-04] MEDS: Famotidine 20 MG Tablet PO (21:37)
[2023-10-05] MEDS: Ampicillin/Sulbactam 3 GM in 0.9% Normal Saline (100mL MB+) 100 ML IV ×5 (00:03→23:37)
[2023-10-05 02:05] VITALS: BP 96/65; PULSE 65; RESP 14; TEMP 36.4; O2SAT 100
[2023-10-05] MEDS: Acetaminophen 325 MG Tablet 650 MG PO ×3 (04:07→16:19)
[2023-10-05] MEDS: oxyCODONE 5 MG Tablet PO ×5 (04:07→23:38)
[2023-10-05 05:40] VITALS: BP 94/61; PULSE 85; RESP 16; TEMP 36.8; O2SAT 100
[2023-10-05 06:00] VITALS: BMI 17.6
[2023-10-05 08:06] LABS: Absolute Lymphocyte Count 1.62 X10^3/uL (0.83-4.51); Absolute Neutrophil Count 7.4 X10^3/uL (2.0-7.7); Basophil# 0.04 X10^3/uL; Basophil% 0.4 % (0-1); Eosinophil# 0.01 X10^3/uL; Eosinophils% 0.1 % (0-5); Hemoglobin 10.5 g/dL (12.0-15.0); Lymphocyte # 1.62 X10^3/ul (0.83-4.51); Lymphocyte % 16.3 % (19-41); Mean Corp Hgb Conc 30.9 g/dL (32-36); Mean Corpuscular Hgb 29.7 pg (27.0-32.0); Mean Platelet Vol. 10.2 fl (6.2-12.0); Monocyte# 0.84 X10^3/uL; Monocyte% 8.5 % (0-10); NRBC Flagged by Analyzer 0 % (0-5); Neutrophil # 7.36 X10^3/uL (2.7-7.7); Neutrophil % 74.2 % (47-70); Platelet Count 209 K/mm3 (150-450); RBC Distribution Width CV 12.8 % (11.6-14.6); RBC Distribution Width SD 45.7 fl (35.1-43.9); Red Blood Count 3.54 M/mm3 (4.2-5.4); White Blood Count 9.9 K/mm3 (4.4-11.0)
[2023-10-05 08:11] VITALS: O2SAT 93
[2023-10-05] MEDS: Calcium Carbonate 500 MG Tablet PO ×3 (08:21→17:23)
[2023-10-05] MEDS: Famotidine 20 MG Tablet PO ×2 (08:21→21:48)
[2023-10-05] MEDS: Senna/Docusate Sodium 1 Tablet 2 TABLET PO ×2 (08:21→21:48)
[2023-10-05 08:34] VITALS: BP 108/70; PULSE 83; RESP 16; TEMP 37; O2SAT 100
[2023-10-05 08:35] LABS: ALB/GLOB Ratio 1.1 RATIO (0.9-2.4); AST(SGOT) 19 U/L (15-37); Alanine Aminotransfer ALT/SGPT 27 U/L (13-56); Albumin, Serum 3.2 g/dL (3.2-5.0); Alkaline Phosphatase 26 U/L (45-117); Anion Gap 4 (5-15); BUN 9 mg/dL (7-18); BUN/Creat Ratio 12.6 RATIO (10-20); Calcium,Total 8.5 mg/dL (8.5-10.1); Chloride 106 mmol/L (98-107); Creatinine, Serum 0.72 mg/dL (0.55-1.02); EST Glomerular Filtration Rate 98 mL/min (>60); Est Glom Filt Rate - Afr Amer 119 mL/min (>60); Estimated Creatinine Clearance 96.58 ml/min; Globulin 2.9 g/dL (2.2-4.2); Glucose 103 mg/dL (74-106); Potassium 3.7 mmol/L (3.5-5.1); Protein, Total 6.1 g/dL (6.4-8.2); Sodium Level 137 mmol/L (136-145)
--- NOTE | 2023-10-05 10:56 | CASEMGMT ---
SELVIN JONES NOTE: Therapy evals reviewed. Pt ambulated 15 ft w/use of WW, additional therapy recommended. SELVIN JONES to room. Pt resting in bed. @ bedside. Pt states she feels safe discharging home, stating has a lot of family support. She denies wanting any therapy @ discharge. Pt verifies she has a walker available @ home that she can use and also has crutches that she may end up using in the future, but for now will use a walker since therapy recommended this. She denies having any discharge needs/concerns. Farnaz GABRIELN RN CM
[2023-10-05 15:49] VITALS: BP 106/69; PULSE 86; RESP 16; TEMP 37.2; O2SAT 100
[2023-10-05] MEDS: Rivaroxaban 10 MG Tablet PO (17:23)
--- NOTE | 2023-10-05 20:05 | PN.ORTHO_ITS ---
Subjective Subjective Postoperative day 1 left hip cephalomedullary nail for intertrochanteric hip fracture patient doing well having some spasms at the distal quadriceps. Other than that they did see physical therapy were up and using a walker got up to the bathroom use the bathroom twice is sitting at the edge of the bed. Here with Josafat very pleasant family. Objective Data Objective Data Vital Signs: Vital Signs Temp Pulse Resp BP Pulse Ox O2 Del Method O2 Flow Rate 98.9 F 86 16 106/69 100 Room Air 2 10/05/23 15:49 10/05/23 15:49 10/05/23 15:49 10/05/23 15:49 10/05/23 15:49 10/05/23 15:49 10/04/23 17:22 Oxygen Flow Rate (L/min) 2 Oxygen Delivery Method Room Air Weight: 123 lb 10.869 oz Body Mass Index (BMI) 17.6 Intake & Output: Intake and Output for Last 24 Hours 10/03/23 10/04/23 10/05/23 23:59 23:59 23:59 Intake Total 3669.08 / 3869.08 798 / 798 Output Total 700 / 1050 600 / 600 Balance 2969.08 / 2819.08 198 / 198 Lab / Micro Data Attestation: I reviewed the patient's lab results. 10/05/23 06:58 10/05/23 06:58 Labs: Laboratory Results - last 24 hr 10/05/23 06:58: WBC 9.9, RBC 3.54 L, Hgb 10.5 L, Hct 34.0 L, MCV 96.0, MCH 29.7, MCHC 30.9 L, RDW Std Deviation 45.7 H, RDW Coeff of [place] 12.8, Plt Count 209, MPV 10.2, Immature Gran % (Auto) 0.500, Neut % (Auto) 74.2 H, Lymph % (Auto) 16.3 L, [place] % (Auto) 8.5, Eos % (Auto) 0.1, Baso % (Auto) 0.4, Absolute Neuts (auto) 7.4, Absolute Lymphs (auto) 1.62, Nucleated RBC % 0, Sodium 137, Potassium 3.7, Chloride 106, Carbon Dioxide 27.0, Anion Gap 4 L, BUN 9, Creatinine 0.72, Estim Creat Clear Calc 96.58, Est GFR (MDRD) Af Amer 119, Est GFR (MDRD) Non-Af 98, BUN/Creatinine Ratio 12.6, Glucose 103, Calcium 8.5, Total Bilirubin 0.60, AST 19, ALT 27, Alkaline Phosphatase 26 L, Total Protein 6.1 L, Albumin 3.2, Globulin 2.9, Albumin/Globulin Ratio 1.1 Physical Exam Const alert, oriented x3, no apparent distress and well nourished Extremity Extremity Narrative: Left lower extremity neurovascularly intact normal sensation to the foot dorsiflex and plantarflex the foot good dorsalis pedis pulse the dressings are dry thigh is soft. Assessment & Plan Assessment/Plan (1) Closed left hip fracture: PLAN: Postoperative day one 37-year-old female left hip intertrochanteric fracture with cephalomedullary nail. Patient is doing well having some mild quadriceps cramping I recommend pain medication gentle stretching for that activities and weightbearing as tolerated. Not cleared by the physical therapist yet I would like them to stay another day overnight and see PT and OT in the morning to assess for safety for discharge home. If they are safe with walker or crutches then we can discharge the patient home plan to send the prescription into [facility] as discussed with the patient's . Okay to shower over top but try to keep the incision clean and dry and follow-up in the office in 2 weeks time they understood no further questions or concerns.
[2023-10-05 22:16] VITALS: BP 103/61; PULSE 86; RESP 18; TEMP 37.1; O2SAT 98
--- NOTE | 2023-10-05 23:43 | NURSING ---
Was able to obtain blood for gold tube on patient's right arm. Patient stated that nurses have always had a hard time drawing blood from her. Gold blood tube was sent to the lab. Lab was then contacted to send up physics tutor to obtain the remaining tubes and cultures that were ordered.
[2023-10-06 04:00] VITALS: BP 117/73; PULSE 91; RESP 16; TEMP 36.6; O2SAT 99
[2023-10-06] MEDS: Acetaminophen 325 MG Tablet 650 MG PO ×2 (04:51→13:27)
[2023-10-06] MEDS: oxyCODONE 5 MG Tablet PO ×3 (04:51→15:37)
[2023-10-06] MEDS: Ampicillin/Sulbactam 3 GM in 0.9% Normal Saline (100mL MB+) 100 ML IV ×2 (04:56→13:28)
[2023-10-06] MEDS: Senna/Docusate Sodium 1 Tablet 2 TABLET PO (08:37)
[2023-10-06] MEDS: Famotidine 20 MG Tablet PO (08:37)
[2023-10-06] MEDS: Calcium Carbonate 500 MG Tablet PO ×2 (08:37→13:29)
[2023-10-06 08:47] VITALS: O2SAT 94
[2023-10-06 10:00] VITALS: BP 110/76; PULSE 85; RESP 16; TEMP 37.2; O2SAT 100
[2023-10-06] MEDS: Rivaroxaban 10 MG Tablet PO (15:37)
[2023-10-06 16:52] VITALS: BP 133/66; PULSE 89; RESP 16; TEMP 36.8; O2SAT 100
== END 2023-10-06 17:38 | disposition home or self-care (01) | DRG 482 ==
LOC: ED 05:32 → MS3 06:17
PROVIDERS: Anesthesiology; Family Medicine; Admitting Provider Orthopaedic Surgery Sports Medicine; Emergency Provider Student in an Organized Health Care Education/Training Program; PCP Family Medicine; Visit Provider Orthopaedic Surgery Sports Medicine
PROC: 0QS706Z Reposition Left Upper Femur with Intramedullary Internal Fixation Device, Open Approach (ICD-10-PCS; principal; 2023-10-04 13:00)
DX: S72.142A Displaced intertrochanteric fracture of left femur, initial encounter for closed fracture (principal); W01.0XXA Fall on same level from slipping, tripping and stumbling without subsequent striking against object, initial encounter; W54.0XXA Bitten by dog, initial encounter; Y93.19 Activity, other involving water and watercraft; Y92.89 Other specified places as the place of occurrence of the external cause
CPT/HCPCS: 36415; 71045; 72170; 73502; 73552; 76000; 80048; 80053; 81025; 85025; 86850; 86900; 86901; 90715; 94668; 97110; 97116; 97162; 97165; 97530; 99284; C1713; C1776; J7030; J7120; A4216; J0295; J2405

== ENCOUNTER → 2023-10-18 | Outpatient (CLI) | payer OTHER, SELFPAY ==
--- NOTE | 2023-10-18 14:46 | RAD_ITS ---
INDICATION: fu EXAMINATION/TECHNIQUE: X-RAY - LEFT XR Femur Min 2 Views 4 VIEWS COMPARISON: Femur radiograph October 04, 2023. Hip radiograph on same day FINDINGS: SOFT TISSUES: Left lateral hip and lower thigh skin latoya remaining in place with mild residual postsurgical edema. No radiopaque foreign body. BONES/JOINTS: Antegrade intramedullary femoral miki fixation of prior trochanteric fracture with femoral neck interlocking screw. 2 distal femur and locking screws. No evidence of hardware failure or fracture. No additional osseous fracture. Residual fracture lucencies are noted, less distinct than prior exam. No new fracture or displacement. RAD/Femur Min 2 Views IMPRESSION: Interval internal fixation of healing comminuted intratrochanteric femur fracture.. Electronically Signed: Jose Salazar MD at 8:11 EDT ,
--- NOTE | 2023-10-18 14:46 | RAD_ITS ---
INDICATION: fu EXAMINATION/TECHNIQUE: X-RAY - XR Pelvis 1 or 2 Views COMPARISON: October 04, 2023. FINDINGS: PELVIC BONES: No displaced fracture, destructive or sclerotic lesions. Note that overlapping bowel shadows may however obscure fine detail. Sacroiliac joints are unremarkable. No widening of the pubic symphysis. HIPS: Interval left femoral internal fixation spanning prior intratrochanteric femur fracture. Residual fracture lucency noted along the lesser trochanter without displacement. No periarticular lucency or evidence of hardware failure. No new fractures seen. Normal bilateral hip alignment with preserved joint spacing. SOFT TISSUES: No soft tissue swelling or gas. RAD/Pelvis 1 or 2 Views IMPRESSION: Left femoral internal fixation with partial healing. Electronically Signed: Jose Salazar MD at 8:09 EDT ,
== END | disposition home or self-care (01) ==
LOC: MTRAD 14:46
PROVIDERS: PCP Family Medicine; Referring Provider Orthopaedic Surgery Sports Medicine; Visit Provider Orthopaedic Surgery Sports Medicine
DX: S72.002A Fracture of unspecified part of neck of left femur, initial encounter for closed fracture (principal)
CPT/HCPCS: 72170; 73552